=== PATIENT | male | born 1950 | race Caucasian/White ===

== ENCOUNTER 2019-06-22 08:02 | Outpatient (CLI) | payer MEDICARE ==
--- NOTE | 2019-06-22 10:53 | MRI ---
MRI LUMBAR SPINE WITH AND WITHOUT CONTRAST: 06/22/2019 HISTORY: Low back pain, left groin pain, left lower extremity radiculopathy. COMPARISON: None. TECHNIQUE: Multiplanar, multisequence MR imaging of the lumbar spine is obtained with and without contrast. FINDINGS: The sagittal STIR imaging demonstrates edematous degenerative endplate change at the L2-3 level and t o a lesser degree at the L3-4 level. On the basis of five lumbar type vertebral bodies, the conus medullaris terminates at the T12-L1 level. T11-12: There is disc space narrowing and disc desiccation with mild disc bulge. There is mild bilate ral neural foraminal stenosis. No significant central canal stenosis. T12-L1: There is disc space narrowing with disc desiccation and mild disc bulge. Bilateral facet hype rtrophy. No significant central canal or neural foraminal stenosis. L1-2: Mild bilateral facet hypertrophy. Mild disc space narrowing and mild disc bulge with no signifi cant central canal stenosis. There is a small left disc protrusion. There is no significant central canal or neural foraminal stenosis. L2-3: Severe degenerative changes of the L2-3 endplates with prominent disc space narrowing, disc flavia iccation, anterior osteophyte formation. There is moderate bilateral facet hypertrophy. There is severe right and moderate left neural foraminal stenosis. There is mild/moderate central canal stenos is. L3-4: There is disc space narrowing and disc desiccation with vacuum disc formation and disc bulge. T here is bilateral facet hypertrophy. There is severe left and moderate right neural foraminal stenosis. There is moderate central canal stenosis. L4-5: There is disc space narrowing and disc desiccation with mild disc bulge. There is bilateral fac et hypertrophy and hypertrophy of ligamentum flavum with a mild/moderate degree of central canal stenosis. There is mild/moderate right neural foraminal stenosis and severe left neural foraminal juanita nosis. L5-S1: There is bilateral facet hypertrophy. Intervertebral disc height and signal intensity is withi n normal limits with no significant central canal or neural foraminal stenosis. The imaged retroperitoneal structures demonstrate ectasia of the infrarenal abdominal aorta. The post contrast imaging demonstrates no abnormal enhancement involving the intervertebral discs or the osseous structures. There may be a faintly enhancing nerve roots of the cauda equina posterolaterally on the right. IMPRESSION: Multilevel degenerative change within the lumbar spine as detailed above. Transcribed Date/Time: 06/22/2019 10:56 AM
--- NOTE | 2019-06-22 11:19 | MRI ---
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 Dropping objects from both hands. Cervical radiculopathy. TECHNIQUE: Multiplanar multisequence MR imaging of the cervical spine obtained with and without contrast. FINDINGS: Anterior discectomy and fusion hardware noted at C5-6, C6-7, C7-T1 and T1-2, not well assessed on thi s examination. The sagittal STIR imaging demonstrates edematous degenerative endplate change at the C5-6 level and the T2-T3 level. C2-3: There is disc space narrowing with disc desiccation and mild disc bulge causing a mild degree o f central canal stenosis. There is bilateral facet hypertrophy and uncovertebral osteophyte formation. There is mild/moderate b ilateral neural foraminal stenosis. C3-4: There is disc space narrowing with disc desiccation and disc bulge. Superimposed disc herniatio n noted in the right paracentral/right foraminal region. This causes moderate central canal stenosis laterally on the right with partial flattening of the right aspect of the cervical cord. The re is prominent bilateral facet and uncovertebral osteophyte formation with moderate left and severe right neural foraminal stenosis. C4-5: There is disc space narrowing with disc desiccation and mild disc bulge causing mild central ca nal stenosis. Bilateral facet hypertrophy present with mild bilateral neural foraminal stenosis. C5-6: There is disc space narrowing with disc desiccation mild disc bulge causing partial effacement of the ventral thecal sac and mild central canal stenosis. Bilateral facet hypertrophy noted with moderate bilateral neural foraminal stenosis, right greater than left. C6-7: There is disc space narrowing with disc desiccation. No central canal stenosis. Mild bilateral neural foraminal stenosis on the basis of facet hypertrophy. C7-T1: Disc space narrowing with no central canal stenosis. Mild bilateral neural foraminal stenosis on the basis of facet hypertrophy. T1-2: There is disc space narrowing with mild disc bulge causing mild central canal stenosis at these levels. There is moderate bilateral neural foraminal stenosis at T1 to. T2-3: There is moderate bilateral neural foraminal stenosis, right greater than left. No focal area of abnormal signal intensity is identified within the cervical cord. The post contrast imaging demonstrates no abnormal enhancement involving the contents of the thecal s ac, imaged osseous structures or imaged intervertebral discs. IMPRESSION: Multilevel degenerative and postoperative change within the cervical spine as above. Transcribed Date/Time: 06/22/2019 11:56 AM
== END 2019-06-22 08:03 | disposition home or self-care (01) ==
LOC: TBSIIMAG 08:02
PROVIDERS: ATTEND Neurological Surgery
DX: M47.22 Other spondylosis with radiculopathy, cervical region (principal); M47.26 Other spondylosis with radiculopathy, lumbar region; Z98.890 Other specified postprocedural states
CPT/HCPCS: 72156; 72158; 82565

== ENCOUNTER 2023-04-10 12:38 | Outpatient (CLI) | payer MEDICARE | END 2023-04-10 12:39 | disposition home or self-care (01) | LOC: SCSMRI 12:38 | PROVIDERS: ATTEND Neurological Surgery | DX: M47.26 Other spondylosis with radiculopathy, lumbar region (principal); M25.551 Pain in right hip; M51.16 Intervertebral disc disorders with radiculopathy, lumbar region; M89.38 Hypertrophy of bone, other site; R60.0 Localized edema; M94.8X5 Other specified disorders of cartilage, thigh; M67.853 Other specified disorders of tendon, right hip; S73.191A Other sprain of right hip, initial encounter; Z98.890 Other specified postprocedural states | CPT/HCPCS: 72158 ==